=== PATIENT | female | born 1980 | race Caucasian/White ===

== ENCOUNTER 2021-11-06 18:55 | Emergency (ER) | payer OTHER, SELFPAY ==
[2021-11-06 19:15] VITALS: BP 138/78; PULSE 93; RESP 18; TEMP 36.6; O2SAT 100
--- NOTE | 2021-11-06 19:37 | ED.GENADULT ---
HPI - General Adult General Chief complaint: Upper Respiratory Infection Stated complaint: sorethroat,ear pain Source: patient Mode of arrival: ambulatory Limitations: no limitations History of Present Illness HPI narrative: Patient is a 41-year-old female presents to urgent care via POV for evaluation of a upper respiratory symptoms that began 1 day ago. Additionally, she reports her sore throat, bilateral ear pain, and nonproductive cough. Warm salt water gargles provides some relief. Swallowing worsens throat pain. Patient reports she was exposed to Covid on 11/01/2021. She is fully vaccinated against Covid and influenza. She is also had the Covid booster. Related Data Allergies Allergy/AdvReac Type Severity Reaction Status Date / Time No Known Allergies Allergy Verified 11/06/21 19:44 Review of Systems Review of Systems: Denies fever, chills, sweats, change in appetite, poor p.o. intake, myalgias, fatigue, dizziness, LOC, syncope, hearing difficulty, ear drainage, abdominal pain, nausea, vomiting, diarrhea, sneezing, sinus pain, nasal congestion, wheezing, shortness of breath, cyanosis, orthopnea, chest pain, and heart palpitations PMFSH Comments I have reviewed and agree with the patient's past medical, surgical, social, and family hx as documented by the RN. There is no relevant family history pertinent to the presenting complaint. Exam Narrative: GENERAL: Well-appearing, well-nourished, and in no acute distress. HEAD: Normocephalic, atraumatic. No sinus tenderness or facial swelling appreciated. EYES: PERRLA and EOMI. No evidence of erythema, swelling, or drainage. ENT: Bilateral external ears and ear canals normal. Bilateral TMs are normal.No TM perforation. Nares clear, no rhinorrhea or epistaxis. Bilateral turbinates without erythema/ swelling. Mucous membranes moist and pink. Uvula is midline without erythema and swelling. No evidence of petechial rash, cobblestoning, lesions, ulcers, erythema, swelling, exudates, peritonsillar abscess, tenting, or drooling. Breath odor and voice normal. NECK: Supple. No Lymphadenopathy or nuchal rigidity appreciated. CHEST: Bilateral lung pinedo are clear to auscultation. No respiratory distress. No evidence of cough or pleuritic cp upon examination. HEART: Regular rate and rhythm. No murmur, gallop, or rub heard. EXTREMITIES: Normal range of motion. No edema. SKIN: Warm, dry, no rash. NEURO: No focal deficits. Alert and oriented x3. Special observations: Complaints of proportion to exam findings. Course Vital Signs Vital signs: Vital Signs Temperature 98 F 11/06/21 19:15 Pulse Rate 93 11/06/21 19:15 Respiratory Rate 18 11/06/21 19:15 Blood Pressure 138/78 11/06/21 19:15 Pulse Oximetry 100 11/06/21 19:15 Temperature 98 F 11/06/21 19:15 Pulse Rate 93 11/06/21 19:15 Respiratory Rate 18 11/06/21 19:15 Blood Pressure 138/78 11/06/21 19:15 Pulse Oximetry 100 11/06/21 19:15 Due to an elevated blood pressure, I had a detailed discussion with the patient and/or guardian regarding the need for follow-up with their primary care provider within the next 3-4 days. Patient verbalized understanding and agreed. Medical Decision Making Differential Diagnosis Differential Diagnosis: Allergic rhinitis, ABRS, acute viral sinusitis, strep pharyngitis, nasopharyngitis, bronchitis, pneumonia, AOM, otitis externa, viral URI, influenza, covid-19 Medical Records Medical records reviewed: Yes I reviewed the external patient's medical records. Vital Signs Vital Signs: Vital Signs Temperature 98 F 11/06/21 19:15 Pulse Rate 93 11/06/21 19:15 Respiratory Rate 18 11/06/21 19:15 Blood Pressure 138/78 11/06/21 19:15 Pulse Oximetry 100 11/06/21 19:15 Temperature 98 F 11/06/21 19:15 Pulse Rate 93 11/06/21 19:15 Respiratory Rate 18 11/06/21 19:15 Blood Pressure 138/78 11/06/21 19:15 Pulse Oximetry 100 11/06/21 19:15
== END 2021-11-06 19:54 | disposition home or self-care (01) ==
PROVIDERS: Emergency Provider Nurse Practitioner Family; PCP Internal Medicine
DX: J06.9 Acute upper respiratory infection, unspecified (principal); Z20.822 Contact with and (suspected) exposure to COVID-19
CPT/HCPCS: 87081; 87880; 99203; G0463

== ENCOUNTER → 2021-11-08 01:35 | Outpatient (CLI) | payer OTHER, SELFPAY ==
[2021-11-09 16:52] LABS: SARS-CoV-2 RNA PCR Negative
== END ==
PROVIDERS: PCP Internal Medicine; Visit Provider Nurse Practitioner Family
DX: J06.9 Acute upper respiratory infection, unspecified (principal); Z20.822 Contact with and (suspected) exposure to COVID-19
CPT/HCPCS: C9803; U0003; U0005